=== PATIENT | female | born 1925 | race Caucasian/White ===

== ENCOUNTER 2016-09-27 15:11 | Observation (INO) | payer MEDICARE, OTHER ==
[~2016-09-27] VITALS: Ht 152.4 cm; Wt 58.6 kg
[~2016-09-27 15:11] MED LIST: ALBU8.5H4 IH; ASPI-628 PO; CYA1000I IM; DICY20TA10 PO; DOCU100C8 PO; GLMP1T PO; HYDR25TA4 PO; LEVO100T6 PO; LISI-567 PO; LOVA40TA PO; METO50TA3 PO; PARO10OR3 PO
[2016-09-27 15:18] VITALS: BP 133/82; PULSE 68; RESP 18; O2SAT 96
--- NOTE | 2016-09-27 18:46 | ED.REPORT ---
HPI-Psychiatric Illness Date of Service Sep 27, 2016 ED Provider: Sachin Red MD Radah is an 89-year-old female presents with her daughter for chief complaint of hallucinations. Daughter reports approximately 3 year history of visual hallucinations consisting of an animal in her room, people intruding in her room , as well as auditory hallucinations. These episodes are sporadic, typically occur in the evening and are generally associated with urinary tract infections. Her most recent episode began about 1 week ago with diagnosed UTI which was treated at the [facility]. On presentation, daughter reports that the patient had hallucinations of an intruder in her home and called police last night. She has also been walking around the house with a knife hoping to stab "the animal" that she sees to "prove to that are not going crazy. " In this instance hallucinations continued despite the clearing of the UTI. Radha lives with her granddaughter and great grandsons who are becoming quite concerned about her behavior. Daughter also reports that she had an episode of difficulty finding words last week. Her primary care provider as scheduled an MRI for this coming Sunday. Denies any other complaints. Nursing Notes Stated Complaint: HALLUCINATIONS, AGGITATED Chief Complaint: Psychiatric Complaint Nursing Notes Reviewed: Yes Allergies: Coded Allergies: amoxicillin (Verified Allergy, Unknown, 09/27/16) Scheduled Aspirin (Aspir 81) 81 Mg Tablet.dr 81 MG PO DAILY Cyanocobalamin (Cyanocobalamin Injection) 1,000 Mcg/1 Ml Vial 1,000 MCG IM Monthly Glimepiride (Amaryl) 1 Mg Tab 1 MG PO DAILY Hydrochlorothiazide (Hydrochlorothiazide) 25 Mg Tablet 25 MG PO DAILY Levothyroxine (Levothyroxine) 100 Mcg Tablet 100 MCG PO DAILY Lisinopril (Lisinopril) 20 Mg Tablet 20 MG PO BID Lovastatin (Lovastatin) 40 Mg Tablet 40 MG PO HS Metoprolol Tartrate (Metoprolol Tartrate) 50 Mg Tablet 50 MG PO BID Paroxetine (Paxil) 10 Mg/5 Ml Oral.susp 40 MG PO HS Scheduled PRN Albuterol HFA (Albuterol HFA) 8.5 Gm Hfa.aer.ad 1 PUFF IH Q4 PRN PRN For Shortness of Breath Dicyclomine (Dicyclomine) 20 Mg Tablet 20 MG PO BID PRN PRN For GI Cramps Docusate Sodium (Docusate Sodium) 100 Mg Capsule 100 MG PO DAILY PRN PRN For Constipation General Time Seen by MD: 18:24 Chief Complaint Bizarre behavior, Hallucinations, auditory, Hallucinations, visual Hx Obtained From: Daughter Arrived By: Walk-in Onset Occurred: 2 days ago Symptom Duration: Intermittent Progression Since Onset: Intermittent Risk-Psychiatric Illness Suicide Risk Stratification RF Statements: Risk factors reviewed Past Medical History Past Medical History Notes: PCP: [facility] Frederick Past Medical History Vitamin B12 deficiency Takes aspirin Zenker's diverticulum Reports: Asthma, Cancer, Diabetes mellitus, Hypertension Past Surgical History Lumpectomy Smoking History Never Smoker Social History Alcohol Use: Denies alcohol use Drug Use: Denies drug use Review of Systems General: Denies fever, chills, malaise. HEENT: Denies congestion, headache, sore throat. Respiratory: Denies dyspnea, cough, shortness of breath, wheezing. Cardiovascular: Denies chest pain, palpitations. Gastrointestinal: Denies vomiting, diarrhea, abdominal pain. Genitourinary: Denies frequency, urgency, dysuria, hematuria. Otherwise as noted in HPI. Complete sys rev & neg: except as marked. Physical Exam General: Well appearing, well developed, well nourished, no acute distress. Head: Atraumatic, normocephalic. No mastoid tenderness. Eyes: No scleral icterus or injection. No discharge. PERRL. Vision grossly intact. Ears: Pinna and tragus nontender with manipulation. External auditory canal patent, atraumatic and without discharge. Tympanic membrane gibson, shiny and translucent without fluid, bulging, retraction or perforation. Hearing impaired. Nose: Symmetrical, nares patent without discharge. No frontal or maxillary sinus tenderness. Mouth/pharynx: Edentulous maxillary, poor dentition in mandible, mucus membranes tacky. Tonsils 2+ and symmetrical, uvula midline. Pharynx noninjected , no cobblestoning or discharge. Voice clear. Neck: No tenderness or lymphadenopathy. Trachea midline. Respiratory: Regular rate and rhythm. Breath sounds present, clear to auscultation and equal bilaterally. Cardiovascular: Regular rate and rhythm, without murmur, gallop or rub. No pedal edema. Gastrointestinal: Abdomen flat and non-tender without guarding or rebound. Bowel sounds normoactive. Skin: Warm and dry. Neurological: Grossly nonfocal. No pronator drift. Cranial nerves: Vision grossly intact, PERRL, EOMI. Facial motion symmetrical, sensation to light touch over forehead, maxilla and mandible present and equal B /L. Voice clear and fluent, no drooling/pooling of saliva, uvula rises midline. Psychological: Alert and oriented x3. Count backwards from 10. Recalls anecdotes from her younger life. Can repeat 3 memory items immediately after learning them and several minutes later remembers 2 of them. Initial Vital Signs Vital Signs (First) Date Time Temp Pulse Resp B/P Pulse Ox O2 Delivery O2 Flow Rate FiO2 09/27/16 15:18 36.2 68 18 133/82 96 Room Air Initial VS: Reviewed, Vital signs normal Interpretation & Diagnostics Lab Results Interpretation Result Diagram: 09/27/16195009/27/161950 Test 09/27/16 18:39 09/27/16 19:51 09/27/16 22:30 Urine Color Yellow (YELLOW) Urine Appearance Clear (CLEAR,HAZY) Urine pH 6.0 (5.0-8.0) Urine Specific [place] 1.025 (1.003-1.035) Urine Protein Negativemg/dL (NEG,TRACE) Urine Glucose (UA) Negativemg/dL (NEGATIVE) Urine Ketones Negativemg/dL (NEGATIVE) Urine Occult Blood Negative (NEGATIVE) Urine Nitrite Negative (NEGATIVE) Urine Bilirubin Negative (NEGATIVE) Urine Urobilinogen Normalmg/dL (NORMAL) Urine Leukocyte Esterase Negative (NEGATIVE) Urine RBC 0-2/hpf (0-2) Urine WBC 0-5/hpf (0-5) Urine Epithelial Cells Occasional/hpf (NONE-MOD) Urine Crystals None seen (NONE SEEN) Urine Bacteria None/hpf (NONE-FEW) Urine Hyaline Casts None/lpf (NONE) Urine Granular Casts None seen (NONE SEEN) Urine Waxy Casts None seen (NONE SEEN) Urine Red Blood Cell Casts None seen (NONE SEEN) Urine White Blood Cell Casts None seen (NONE SEEN) Urine Mucus None seen (None Seen) Urine Trichomonas None seen (NONE SEEN) Urine Yeast None (NONE SEEN) Urinalysis Comment None Urine Culture Reflexed Not indicated White Blood Count 5.7th/mm3 (3.8-10.1) Red Blood Count 3.89mil/mm3 (3.90-5.20) Hemoglobin 11.9g/dL (12.0-15.6) Hematocrit 37.0% (35.0-46.0) Mean Corpuscular Volume 95.1fL (81-100) Mean Corpuscular Hemoglobin 30.6pg (27.0-35.0) Mean Corpuscular Hemoglobin Concent 32.2% (32.0-37.0) Red Cell Distribution Width 13.6% (12.3-15.4) Platelet Count 194bil/L (150-400) Neutrophils (%) (Auto) 60.8% (40-74) Lymphocytes (%) (Auto) 20.0% (14-46) Monocytes (%) (Auto) 15.3% (4-12) Eosinophils (%) (Auto) 2.8% (0-5) Basophils (%) (Auto) 0.9% (0-3) Prothrombin Time 10.0sec (8.1-12.5) Prothromb Time International Ratio 0.94ratio Activated Partial Thromboplast Time 26.8sec (22.8-33.0) Sodium Level 140mEq/L (134-144) Potassium Level 4.4mEq/L (3.5-5.2) Chloride Level 101mEq/L (97-108) Carbon Dioxide Level 26mmol/L (18-29) Blood Urea Nitrogen 27mg/dL (8-27) Creatinine 1.50mg/dL (0.57-1.00) Estimat Glomerular Filtration Rate 47mL/min (>59) Glucose Level 77mg/dL (60-99) Lactic Acid Level 1.1mmol/L (0.4-2.0) Calcium Level 9.3mg/dL (8.5-10.1) Total Bilirubin 0.3mg/dL (0.0-1.2) Aspartate Amino Transf (AST/SGOT) 21U/L (0-50) Alanine Aminotransferase (ALT/SGPT) 17U/L (0-32) Alkaline Phosphatase 71U/L (25-165) Total Protein 7.5g/dL (6.4-8.4) Albumin 4.1g/dL (3.4-5.0) Thyroid Stimulating Hormone (TSH) 0.468uIU/mL (0.450-4.500) CSF Appearance Clear (CLEAR) CSF Color Colorless (COLORLESS) CSF WBC 0/mm3 (0-5) CSF RBC 3/mm3 CSF Mononuclear WBCs % CSF Polynuclear WBCs % CSF Other Cells CSF Glucose 60mg/dL (45-90) CSF Total Protein 52mg/dL (15-45) Lab Results Interpretation: CBC normal CMP mild creatinine elevation Glucose normal Lactic acid negative Blood cultures pending UA Negative CSF negative leukocytosis, negative pleocytosis, negative Gram stain, marginally elevated protein of uncertain significance PCR pending, but given the negative leukocytosis suspicion for me is low X-Ray Chest Interpretation Chest Xray Interpretation: PROCEDURE: X-RAY CHEST ONE VIEW, PORTABLE ([id number]) INDICATIONS: altered LOC/confusion ?delerium IMPRESSION: No acute cardiopulmonary disease process. Interpretation / Wet Read by: Interpret - Radiologist, [facility] CT Head Interpretation PROCEDURE: CT BRAIN WITHOUT CONTRAST ([id number]) INDICATIONS: altered LOC IMPRESSION: No acute intracranial disease process. Interpretation / Wet Read by: Interpret - Radiologist Procedures Lumbar Puncture Text / Dict Note: 4cc of clear, colorless CSF obtained. Time: 22:25 Procedure Performed by: ED physician Consent / Setup / Site Prep: Informed consent provided, Consent from patient , Time-out performed, Hand hygiene observed, Stand sterile technique, Sterile drapes applied, Patient sitting up Skin Preparation Agent: Betadine Local Anesthesia: Bupivacaine 0.5% LP Needle Gauge: 22g Inserted Needle at: L4 L5 Post-Procedure / Complications: No complications, Tolerated procedure well, Patient stable Re-Eval/Medical Decision Source of Hx: Old records Re-Evaluation/Progress #1: Time of Eval: 19:30 Re-Evaluation/Progress Note: Investigated labs not drawn. Lab has been without district manager major accounts sales for an hour. Labs are now being drawn. Re-Evaluation/Progress #2: Time of Eval: 23:51 Re-Evaluation/Progress Note: Lab called. Gram stain negative on CSF. Consultation : Referral / Consult Name: Augustin Delacruz MD Consulted With: Hospitalist Call Returned at: 23:02 Corporate Specialist: Agrees with eval, Agrees with plan, Accepts admit Counseled Regarding: Diagnosis, Lab results, Need for admission Discharge & Departure Impression: Primary Impression: Hallucinations Additional Impressions: Altered mental status Altered mental status type: unspecified Qualified Code: R41.82 - Altered mental status, unspecified Delirium Disposition: ADMITTED TO HOSPITAL Discharge Condition All VS Reviewed: Yes Condition: Stable Referrals: [facility] (PCP) Debbie Attestation Portions of this note were transcribed by Santos Ding. I, Dr. Red, personally performed the history, physical exam and medical decision-making; I reviewed and confirmed the accuracy of the information in the transcribed note. Signed by: Debbie Alfonso, 09/27/2016 and 23:53 Attending Statement This patient was initially seen by the mid-level provider, but I personally interviewed and examined this patient and interviewed the family. The patient is brought with a chief complaint of an acute alteration in change of mental status, with episodes of loose abrasions where she is thinking there is a animal in the apartment that is not there and is trying to roberto it down. As an acute change house attendant the past week. The family reports he has had prior hallucinations-but they have typically have been associated with clearcut infections, most commonly urinary tract infections. Did have a recent UTI, culture positive at clinic, but was treated with Bactrim, and a follow-up UA was negative. She denies any urination symptoms come she denies fevers or chills. Family is very concerned. He reports that she is had a couple episodes in recent weeks of what sounds like a potential expressive aphasia. She does not have any expressive aphasia in the department, and no focal deficits, and her an extra skills 0, does not make criteria for TPA,-order she have clearcut findings of a CVA at this time. She is actually quite well appearing in the department. She is energetic, slightly hard of hearing, but has a normal exam. Confusion which is at baseline , including trouble with date-is not the best historian is the history has to be supplemented by family. Does not she is doing quite well. Her toxic or ill , she has no clinical meningismus. I cannot obtain any clear infectious symptoms. Patient denies her being on any new medications. 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 Overall the patient's presentation is suggestive of a medical etiology-although nursing and the template used were psychiatric, there is little suggests this primary psychiatric etiology at this time. This point given the waxing and waning symptoms, but her quite significantly over the past week the concern would be delirium. Workup was pursued. CT head was negative. Blood work was normal. Chest x-ray is normal. UA was negative. Informed consent was obtained, and an LP was performed at bedside-this revealed no markers of infection. Patient scheduled for an outpatient MRI, but particularly with the episodes of expressive aphasia in recent weeks, I think observation admission for delirium, and to obtain the expedited MRI are appropriate. Patient's done while in the department. Her chief complaint of being admission if she wishes for a sleep aid she has not slept well in several days. We had a long discussion, since they have indicated that medications can cause problems in this scenario, but ultimately after lengthy discussion the patient and family have written for a 5 mg dose of Ambien x1. Additionally the patient would like medication for claustrophobia for her MRI tomorrow, and reports she does not do well with lorazepam, so I suggested a dose in the [place] when necessary. Only as the family thinks her intake as been slightly poor, she is receiving some gentle IV hydration-although she is not overtly clinically dehydrated nor are labs abnormal. She is being admitted observation status for continued management. copies to: [facility] Seth PA-C Sep 27, 2016 18:46 SANTOS DING Sep 27, 2016 19:31 Sachin Red MD Sep 28, 2016 00:42
--- NOTE | 2016-09-27 18:49 | DRSVH ---
PROCEDURE: CT BRAIN WITHOUT CONTRAST ([id number]) INDICATIONS: altered LOC TECHNIQUE: Noncontrast 4.5 mm thick angled axial sections acquired from the foramen magnum to the vertex, with c oronal reformats. COMPARISON: [facility], CT, BRAIN W/O CONTRAST, 10/27/2014, 10:39. FINDINGS: Image quality: Excellent. CSF spaces: Basal cisterns are patent. No extra-axial fluid collections. The ventricles are symmet samuel in size and shape. Brain: No intracranial bleeds or masses. There is cerebral volume loss for age, with resultant vent ricular and sulcal prominence. There are severe periventricular and deep white matter chronic small vessel ischemic changes. There is intracranial internal carotid artery atherosclerosis. Skull and face: Calvarium and visualized facial bones appear intact, without suspicious lesions. Sinuses: Visualized sinuses and mastoids are clear. IMPRESSION: No acute intracranial disease process. Dictated by: Hortensia Gomez MD, PhD on 09/27/2016 at 18:45 Approved by: Hortensia Gomez MD, PhD on 09/27/2016 at 18:47
[2016-09-27 18:57] LABS: APPEARANCE,URINE CLEAR (CLEAR,HAZY); COLOR,URINE YELLOW (YELLOW); OCCULT BLOOD,URINE NEGATIVE (NEGATIVE); UROBILINOGEN,URINE NORMAL (NORMAL)
[2016-09-27 19:00] VITALS: BP 138/72; PULSE 78; RESP 17; O2SAT 96
[2016-09-27 20:02] LABS: BASOPHILS % (AUTO) 0.9 % (0-3); EOSINOPHILS % (AUTO) 2.8 % (0-5); MONOCYTES % (AUTO) 15.3 % (4-12); Mean Corpuscular Hemoglobin 30.6 pg (27.0-35.0); Mean Corpuscular Volume 95.1 fL (81-100); NEUTROPHILS % (AUTO) 60.8 % (40-74); Platelet Count 194 bil/L (150-400)
[2016-09-27 20:21] LABS: INR 0.94 ratio
--- NOTE | 2016-09-27 20:25 | DRSVH ---
PROCEDURE: X-RAY CHEST ONE VIEW, PORTABLE ([id number]) INDICATIONS: altered LOC/confusion ?delerium TECHNIQUE: One view of the chest was acquired. COMPARISON: [facility], , CHEST 2VW, 10/20/2009, 12:19. FINDINGS: Surgical changes and devices: Surgical clips are stable. Lungs and pleura: Elevation of the right hemidiaphragm is stable. No pleural effusions or pneumothor ax. Lungs are clear. Mediastinum: Mediastinal contours appear normal. Heart size is normal. Bones and chest wall: No suspicious bony lesions. Overlying soft tissues appear unremarkable. IMPRESSION: No acute cardiopulmonary disease process. Dictated by: Hortensia Gomez MD, PhD on 09/27/2016 at 20:22 Approved by: Hortensia Gomez MD, PhD on 09/27/2016 at 20:23
[2016-09-27] MEDS ORDERED: Bupivacaine 0.5% 50 mL Inj SUBQ ONE (21:20)
[2016-09-27] MEDS ORDERED: Bupivacaine-MPF 0.5% 30 mL Inj ONE (21:30)
[2016-09-27] MEDS ORDERED: Bupivacaine 0.5%/EPI 50 mL Inj ONE (21:33)
[2016-09-27 22:30] VITALS: BP 118/80; PULSE 88; RESP 16; O2SAT 98
[2016-09-27] MEDS: 0.9% Sodium Chloride 1,000 ML IV SCH (22:31)
[2016-09-27] MEDS ORDERED: Ondansetron 2 mg/mL 2 mL Inj IV PRN (23:15)
[2016-09-27] MEDS ORDERED: Polyethylene Glycol (PEG) 17 Gm Powder PO PRN (23:15)
[2016-09-27] MEDS ORDERED: Alum-Mag Hydrox-Simeth 30 mL Suspension PO PRN (23:15)
[2016-09-27 23:18] LABS: APPEARANCE,CSF CLEAR (CLEAR); COLOR,CSF COLORLESS (COLORLESS); WHITE BLOOD CELL,CSF 0 /mm3 (0-5)
[2016-09-28] VITALS (7 sets, daily range): BP systolic 122–186; BP diastolic 64–84; PULSE 63–84; RESP 14–18; O2SAT 93–98
[2016-09-28] MEDS: 0.9% Sodium Chloride 1,000 ML IV SCH ×2 (00:10→17:45)
--- NOTE | 2016-09-28 00:37 | PCM.HPMED ---
Subjective Date of Service Sep 27, 2016 Primary Provider: Admitting Physician: Primary Care Physician: [facility] Attending Physician: Admit Status: From the Emergency Department Chief Complaint: Bizarre behavior, Hallucinations, auditory, Hallucinations, visual History of Present Illness: Radha is an pleasant 89-year-old female with history significant for DM2, HTN, who presents to ED with her daughter for chief complaint of hallucinations. Per ED reports, daughter reports approximately 3 year history of visual hallucinations consisting of an animal in her room, people intruding in her room , as well as auditory hallucinations. These episodes are sporadic, typically occur in the evening and are generally associated with urinary tract infections. Her most recent episode began about 1 week ago with diagnosed UTI which was [facility]. On presentation, daughter reports that the patient had hallucinations of an intruder in her home and called police last night. She has also been walking around the house with a knife hoping to stab "the animal" that she sees to "prove to that are not going crazy." In this instance hallucinations continued despite the clearing of the UTI. Radha lives with her granddaughter and great grandsons who are becoming quite concerned about her behavior. Daughter also reports that she had an episode of difficulty finding words last week. Her primary care provider as scheduled an MRI for this coming Sunday. Patient recalls of seeing the animal and remembers trying to stab it with a kitchen knife. Also recalls of the incident last night of apparently seeing a human figure and having a conversation with the police. In the ED, vitals were all within normal range, labs significant for creatinine of 1.5. Lactic acid, TSH, UA, CSF on LP, CXR, CT head all negative. Patient admitted for possible stroke. Review of Systems: All ROS reviewed and negative otherwise noted in HPI. Allergies Coded Allergies: amoxicillin (Verified Allergy, Unknown, 09/27/16) Home Medications Scheduled Aspirin (Aspir 81) 81 Mg Tablet.dr 81 MG PO DAILY Cyanocobalamin (Cyanocobalamin Injection) 1,000 Mcg/1 Ml Vial 1,000 MCG IM Monthly Glimepiride (Amaryl) 1 Mg Tab 1 MG PO DAILY Hydrochlorothiazide (Hydrochlorothiazide) 25 Mg Tablet 25 MG PO DAILY Levothyroxine (Levothyroxine) 100 Mcg Tablet 100 MCG PO DAILY Lisinopril (Lisinopril) 20 Mg Tablet 20 MG PO BID Lovastatin (Lovastatin) 40 Mg Tablet 40 MG PO HS Metoprolol Tartrate (Metoprolol Tartrate) 50 Mg Tablet 50 MG PO BID Paroxetine (Paxil) 10 Mg/5 Ml Oral.susp 40 MG PO HS Scheduled PRN Albuterol HFA (Albuterol HFA) 8.5 Gm Hfa.aer.ad 1 PUFF IH Q4 PRN PRN For Shortness of Breath Dicyclomine (Dicyclomine) 20 Mg Tablet 20 MG PO BID PRN PRN For GI Cramps Docusate Sodium (Docusate Sodium) 100 Mg Capsule 100 MG PO DAILY PRN PRN For Constipation PMH Asthma, Cancer Diabetes mellitus Hypertension Vitamin B12 deficiency Takes aspirin Zenker's diverticulum Surgical History Lumpectomy Family History Father with heart issues Social History Hx Alcohol Use: No Hx Substance Use: No Hx Tobacco Use: No Smoking Status: Never Smoker Living Arrangement: with Family Exam Vital Signs Vital Sign - Last Date Time Temp Pulse Resp B/P Pulse Ox O2 Delivery O2 Flow Rate FiO2 09/27/16 19:00 36.7 78 17 138/72 96 Room Air Exam GEN: Alert and oriented x3, well developed, well nourished, in no acute distress HEENT: NC/AT, non-tender, pupils sluggish, EOMI, sclera anicteric, no sinus tenderness, poor dentition, moist mucous membranes Neck: supple with full ROM, trachea midline, no lymphadenopathy CV: RRR, no murmurs, rubs, or gallops, <3 sec cap refill with normal peripheral pulses Lungs: CTAB, normal breath sounds Abd: soft, non-distended, non-tender, no suprapubic pain, normal active bowel tones Skin: Dry, warm and intact, multiple ecchymosis on bilateral arms Neuro: CN II-XII grossly intact, no focal deficits, strength and sensation intact throughout Psych: normal mood and affect, normal speech Lab and Diagnostics Result Diagram: 09/27/16195009/27/161950 X-Rays, CTs and MRIs Date of Service: 09/27/161823 PROCEDURE: X-RAY CHEST ONE VIEW, PORTABLE ([id number]) INDICATIONS: altered LOC/confusion ?delerium IMPRESSION: No acute cardiopulmonary disease process. Dictated by: Hortensia Gomez MD, PhD on 09/27/2016 at 20:22 Date of Service: 09/27/16 1824 PROCEDURE: CT BRAIN WITHOUT CONTRAST ([id number]) INDICATIONS: altered LOC IMPRESSION: No acute intracranial disease process. Dictated by: Hortensia Gomez MD, PhD on 09/27/2016 at 18:45 Assessment & Plan Patient is an 89-year-old female with history significant for DM2, HTN, who presents with her daughter for chief complaint of hallucinations. Intermittently ongoing for past 3 years, usually related to UTI. Patient treated for UTI one week ago, but hallucinations have not resolved. Patient admitted for stroke work up. Acute Encephalopathy, present on admission. Stable. - Labs, UA, CXR, CT head, LP all negative - BCx pending - MRI in am Possible TIA/CVA, present on admission. Active. - Not a TPA candidate due to symptoms ongoing for past 3 years, worsening over past week - stroke protocol ordered with swallow/OT/PT pending - consider Echocardiogram if indicated - MRI in am Possible acute kidney injury, present on admission. Active. - No baseline to compare - Lisinopril and HTCZ held - IVF - avoid nephrotoxic medications Chronic issues: Diabetes mellitus, type 2 - glipizide held - low correctional insulin protocol Hypertension - Lisinopril, HCTZ, held - continue Metoprolol Hyperlipidemia - continue statin Hypothyroidism - continue levothyroxine Vit B12 deficiency - continue outpatient monthly injections Dental work next week - patient off of aspirin for procedure at this time DVT: Heparin SubQ GI: not indicated CODE: FULL Dispo: Anticipate discharge tomorrow if studies are negative for acute process. Pain Evaluation: Adequate Pain Control GI Prophylaxis: Not indicated VTE Prophylaxis: Sub-Q Heparin (Unfractionated) Resuscitation Status: CPR: Attempt Resuscitation Attending Statement The patient was seen and examined together with Dr. Fuller on 09/27 and I agree with the history, exam and plan as outlined in the note above. Trang Fuller DO Sep 27, 2016 23:18 Augustin Delacruz MD Sep 28, 2016 02:02
[2016-09-28] MEDS ORDERED: Albuterol 2.5 mg/3 mL Inhalation Solution NEB PRN (00:51)
[2016-09-28] MEDS ORDERED: Glucose 40% Oral Gel 15 Gm Tube PO PRN (01:10)
[2016-09-28] MEDS: Heparin 5,000 Unit/mL Inj SUBQ SCH ×3 (02:30→17:44)
--- NOTE | 2016-09-28 05:09 | NUR ---
admit pt admitted from ED to room 1010 at 0040. she is alert and oriented but forgetful. she was able to walk from the gurney to the bed without difficulty. pt is hard of hearing and does not have hearing aids. was unable to complete all of admit because pt could not hear my questions well enough to understand and answers appropriately. admit was done by medical records. also pt was given an ambien in the ED and fell asleep before med rec could be completed. will ask pt about medications when she wakes up. also pt passed the nursing swallow eval without any problems. she was asking for a sandwich MD was called and asked if it was OK to advance pt before she was evaluated by . MD barone in order to advance to carb consistent as tolerated. pt ate her sandwich with no signs of coughing or difficulty swallowing. will continue to monitor.
--- NOTE | 2016-09-28 09:04 | NUR ---
Evaluation completed. Please go to "Notes" then click on "Assessments and Notes" (bottom left corner of screen). Then select appropriate discipline tab on top of screen.
[2016-09-28] MEDS ORDERED: PARO10OR3 PO (09:51)
[2016-09-28] MEDS: Insulin LISPRO 300 Unit/3 mL Inj SUBQ SCH ×4 (10:03→22:00)
[2016-09-28] MEDS ORDERED: PROP10DR10 OP (11:08)
--- NOTE | 2016-09-28 13:42 | DRSVH ---
PROCEDURE: MRI BRAIN WITHOUT CONTRAST ([id number]) INDICATIONS: hallucinations TECHNIQUE: Non-contrast axial T1 spin echo, axial T2 fast spin echo, sagittal and axial FLAIR, coronal T2 fast s pin echo, axial gradient echo, axial diffusion and ADC through the brain. COMPARISON: [facility], CT, CT BRAIN WO CON, 09/27/2016, 18:36. FINDINGS: Image quality: Partially degraded by motion artifact. CSF spaces: Ventricles appear symmetric in size and shape. Basal cisterns are patent. No extra-axi al fluid collections. Brain: No intracranial bleeds or mass effects. There is cerebral volume loss for age. There is a m oderate degree of patchy high FLAIR signal within the periventricular and subcortical white matter. B rainstem appears normal. Diffusion-weighted images show no acute ischemic insults. No chronic ische ambrosio insults. Normal intravascular flow voids are present. Skull and face: Calvarial bone marrow is normal in signal. Orbits are normal. Sinuses: Sinuses and mastoids are clear. IMPRESSION: 1. Volume loss. 2. Moderate degree of nonspecific white matter disease. Differential considerations include small ves mirza ischemic disease, diabetes mellitus, vasculitides, and demyelinating disorders, such as multiple sclerosis. 3. No acute intracranial abnormality. No recent infarct. Dictated by: Sagar Kearns M.D. on 09/28/2016 at 13:37 Approved by: Sagar Kearns M.D. on 09/28/2016 at 13:40
--- NOTE | 2016-09-28 16:34 | NUR ---
Case Management: Attempted to provide MASON--pt appears to be sleeping soundly. Will try later. Jayna Larsen RN Addendum: 09/28/16 at 1809 by JAYNA LARSEN Pt continues to sleep soundly. Unable to deliver MASON. Jayna Larsen RN
--- NOTE | 2016-09-28 18:57 | NUR ---
Activity Pt had no hallucinations during shift and was A&O x 3, but forgetful. Had one episode of being out in hallway looking for bathroom, but was easily reoriented. Pt had Ativan IM prior to MRI for claustrophobia and then hours later daughter in law reported that she can have difficulties at night after taking. aware and passed on to shift supervisor film processing RN. No other doses of Ativan ordered. Pt was up independently in room, until this afternoon when she was sleepy. Pt's BP's have been elevated over course of shift. MD aware and home BP meds were held for possible BRANDT. MD had no other recommendations other than to watch BP and report. Pt had no c/o pain during shift. Medications given in applesauce. Pt has no IV access and MD is aware.
[2016-09-29 00:52] VITALS: BP 180/80; PULSE 65; RESP 18; O2SAT 93
[2016-09-29] MEDS: Heparin 5,000 Unit/mL Inj SUBQ SCH ×2 (00:58→09:45)
--- NOTE | 2016-09-29 04:21 | NUR ---
Activity Patient did not exhibit s/s of hallucination throughout shift. Patient answered questions appropriately. Patient able to sleep comfortably. Denies generalized pain, chest pain, SOB, and any abdominal discomfort at this time. Bed in locked position, call light within reach, intentional rounding.
[2016-09-29] MEDS: 0.9% Sodium Chloride 1,000 ML IV SCH (04:25)
[2016-09-29 04:54] VITALS: PULSE 56
[2016-09-29 05:49] VITALS: BP 163/68; PULSE 61; RESP 16; O2SAT 95
[2016-09-29 06:11] LABS: Mean Corpuscular Hemoglobin 30.6 pg (27.0-35.0); Mean Corpuscular Volume 95.6 fL (81-100)
[2016-09-29 06:14] LABS: Vitamin B12 287 pg/mL (211-946)
[2016-09-29] MEDS ORDERED: ASPI-973 PO (06:51)
[2016-09-29 07:54] VITALS: PULSE 58
[2016-09-29] MEDS: Insulin LISPRO 300 Unit/3 mL Inj SUBQ SCH (07:55)
--- NOTE | 2016-09-29 07:56 | PCM.DIMED ---
Discharge Instructions Date of Service Sep 29, 2016 Dates of Hospitalization Sep 28, 2016 at 00:19 Discharge Diagnosis Discharge Diagnosis Altered mental status, resolved Diet Heart Healthy, Diabetic Activity Other (as tolerated) Patient Instructions Follow-up with PCP in: 1 week Karina Mock MD Sep 29, 2016 07:56
[2016-09-29] MEDS ORDERED: AMLO2.5T PO (07:57)
--- NOTE | 2016-09-29 08:05 | PCM.DC.MED ---
Discharge Summary Date of Service Sep 29, 2016 Dates of Hospitalization Date of Hospital Admission Sep 28, 2016 at 00:19 Date of Discharge: Sep 29, 2016 Providers: Admitting Physician: Augustin Delacruz MD Primary Care Physician: Don Mora Attending Physician: Augustin Delacruz MD Diagnosis at Time of Discharge Diagnosis at Time of Discharge Altered mental status, resolved Procedures XRay, CTs & MRIs Date of Service: 09/27/161823 PROCEDURE: X-RAY CHEST ONE VIEW, PORTABLE ([id number]) INDICATIONS: altered LOC/confusion ?delerium IMPRESSION: No acute cardiopulmonary disease process. Dictated by: Hortensia Gomez MD, PhD on 09/27/2016 at 20:22 Date of Service: 09/27/161823 PROCEDURE: CT BRAIN WITHOUT CONTRAST ([id number]) INDICATIONS: altered LOC IMPRESSION: No acute intracranial disease process. Dictated by: Hortensia Gomez MD, PhD on 09/27/2016 at 18:45 PROCEDURE: MRI BRAIN WITHOUT CONTRAST ([id number]) INDICATIONS: hallucinations TECHNIQUE: Non-contrast axial T1 spin echo, axial T2 fast spin echo, sagittal and axial FLAIR, coronal T2 fast spin echo, axial gradient echo, axial diffusion and ADC through the brain. COMPARISON: [facility], CT, CT BRAIN WO CON, 09/27/2016, 18:36. FINDINGS: Image quality: Partially degraded by motion artifact. CSF spaces: Ventricles appear symmetric in size and shape. Basal cisterns are patent. No extra-axial fluid collections. Brain: No intracranial bleeds or mass effects. There is cerebral volume loss for age. There is a moderate degree of patchy high FLAIR signal within the periventricular and subcortical white matter. Brainstem appears normal. Diffusion-weighted images show no acute ischemic insults. No chronic ischemic insults. Normal intravascular flow voids are present. Skull and face: Calvarial bone marrow is normal in signal. Orbits are normal. Sinuses: Sinuses and mastoids are clear. IMPRESSION: 1. Volume loss. 2. Moderate degree of nonspecific white matter disease. Differential considerations include small vessel ischemic disease, diabetes mellitus, vasculitides, and demyelinating disorders, such as multiple sclerosis. 3. No acute intracranial abnormality. No recent infarct. Brief History Radha is an pleasant 89-year-old female with history significant for DM2, HTN, who presents to ED with her daughter for chief complaint of hallucinations. Per ED reports, daughter reports approximately 3 year history of visual hallucinations consisting of an animal in her room, people intruding in her room , as well as auditory hallucinations. These episodes are sporadic, typically occur in the evening and are generally associated with urinary tract infections. Her most recent episode began about 1 week ago with diagnosed UTI which was treated at the [facility]. On presentation, daughter reports that the patient had hallucinations of an intruder in her home and called police last night. She has also been walking around the house with a knife hoping to stab "the animal" that she sees to "prove to that are not going crazy." In this instance hallucinations continued despite the clearing of the UTI. Radha lives with her granddaughter and great grandsons who are becoming quite concerned about her behavior. Daughter also reports that she had an episode of difficulty finding words last week. Her primary care provider as scheduled an MRI for this coming Sunday. Patient recalls of seeing the animal and remembers trying to stab it with a kitchen knife. Also recalls of the incident last night of apparently seeing a human figure and having a conversation with the police. In the ED, vitals were all within normal range, labs significant for creatinine of 1.5. Lactic acid, TSH, UA, CSF on LP, CXR, CT head all negative. Patient admitted for possible stroke. Hospital Course Patient is an 89-year-old female with history significant for DM2, HTN, who presents with her daughter for chief complaint of hallucinations. Intermittently ongoing for past 3 years, usually related to UTI. Patient treated for UTI one week ago, but hallucinations have not resolved. Patient admitted for stroke work up. Acute Encephalopathy, present on admission. Stable. - Labs, UA, CXR, CT head, LP all negative - BCx pending - MRI in am which did not show any significant acute abnormalities. -Patient had no hallucinations while here and will be discharged to home with family member Possible TIA/CVA, present on admission. Active. - Not a TPA candidate due to symptoms ongoing for past 3 years, worsening over past week - stroke protocol ordered with swallow/OT/PT pending - consider Echocardiogram if indicated - MRI in am which did not show any acute abnormalities Possible acute kidney injury, present on admission. Active. - No baseline to compare - Lisinopril and HTCZ held - IVF - avoid nephrotoxic medications -We will continue off of lisinopril and hydrochlorothiazide and initiate amlodipine 2.5 mg by mouth daily which should be followed up with her primary care provider Chronic issues: Diabetes mellitus, type 2 - glipizide held - low correctional insulin protocol Hypertension - Lisinopril, HCTZ, held - continue Metoprolol Hyperlipidemia - continue statin Hypothyroidism - continue levothyroxine Vit B12 deficiency - continue outpatient monthly injections Dental work next week - patient off of aspirin for procedure at this time DVT: Heparin SubQ GI: not indicated CODE: FULL Dispo: Anticipate discharge tomorrow if studies are negative for acute process. Exam Vital Signs (Last) Date Time Temp Pulse Resp B/P Pulse Ox O2 Delivery O2 Flow Rate FiO2 09/29/16 05:49 36.8 61 16 163/68 95 Room Air Exam Constitutional: Elderly woman in no acute distress Head: Normocephalic atraumatic Chest: Clear to auscultation Cor: Regular rate and rhythm S1-S2 Abdomen: Soft nontender bowel sounds present Extremities: No pedal edema noted Neuro: Alert and oriented 3, moves all extremities equally Laboratory Tests 72 Hours Test 09/27/16 18:39 09/27/16 19:51 09/27/16 22:30 09/28/16 16:55 Urine Color Yellow (YELLOW) Urine Appearance Clear (CLEAR,HAZY) Urine pH 6.0 (5.0-8.0) Urine Specific [place] 1.025 (1.003-1.035) Urine Protein Negativemg/dL (NEG,TRACE) Urine Glucose (UA) Negativemg/dL (NEGATIVE) Urine Ketones Negativemg/dL (NEGATIVE) Urine Occult Blood Negative (NEGATIVE) Urine Nitrite Negative (NEGATIVE) Urine Bilirubin Negative (NEGATIVE) Urine Urobilinogen Normalmg/dL (NORMAL) Urine Leukocyte Esterase Negative (NEGATIVE) Urine RBC 0-2/hpf (0-2) Urine WBC 0-5/hpf (0-5) Urine Epithelial Cells Occasional/hpf (NONE-MOD) Urine Crystals None seen (NONE SEEN) Urine Bacteria None/hpf (NONE-FEW) Urine Hyaline Casts None/lpf (NONE) Urine Granular Casts None seen (NONE SEEN) Urine Waxy Casts None seen (NONE SEEN) Urine Red Blood Cell Casts None seen (NONE SEEN) Urine White Blood Cell Casts None seen (NONE SEEN) Urine Mucus None seen (None Seen) Urine Trichomonas None seen (NONE SEEN) Urine Yeast None (NONE SEEN) Urinalysis Comment None Urine Culture Reflexed Not indicated White Blood Count 5.7th/mm3 (3.8-10.1) Red Blood Count 3.89mil/mm3 (3.90-5.20) Hemoglobin 11.9g/dL (12.0-15.6) Hematocrit 37.0% (35.0-46.0) Mean Corpuscular Volume 95.1fL (81-100) Mean Corpuscular Hemoglobin 30.6pg (27.0-35.0) Mean Corpuscular Hemoglobin Concent 32.2% (32.0-37.0) Red Cell Distribution Width 13.6% (12.3-15.4) Platelet Count 194bil/L (150-400) Neutrophils (%) (Auto) 60.8% (40-74) Lymphocytes (%) (Auto) 20.0% (14-46) Monocytes (%) (Auto) 15.3% (4-12) Eosinophils (%) (Auto) 2.8% (0-5) Basophils (%) (Auto) 0.9% (0-3) Prothrombin Time 10.0sec (8.1-12.5) Prothromb Time International Ratio 0.94ratio Activated Partial Thromboplast Time 26.8sec (22.8-33.0) Sodium Level 140mEq/L (134-144) Potassium Level 4.4mEq/L (3.5-5.2) Chloride Level 101mEq/L (97-108) Carbon Dioxide Level 26mmol/L (18-29) Blood Urea Nitrogen 27mg/dL (8-27) Creatinine 1.50mg/dL (0.57-1.00) Estimat Glomerular Filtration Rate 47mL/min (>59) Glucose Level 77mg/dL (60-99) Lactic Acid Level 1.1mmol/L (0.4-2.0) Calcium Level 9.3mg/dL (8.5-10.1) Total Bilirubin 0.3mg/dL (0.0-1.2) Aspartate Amino Transf (AST/SGOT) 21U/L (0-50) Alanine Aminotransferase (ALT/SGPT) 17U/L (0-32) Alkaline Phosphatase 71U/L (25-165) Total Protein 7.5g/dL (6.4-8.4) Albumin 4.1g/dL (3.4-5.0) Thyroid Stimulating Hormone (TSH) 0.468uIU/mL (0.450-4.500) CSF Appearance Clear (CLEAR) CSF Color Colorless (COLORLESS) CSF WBC 0/mm3 (0-5) CSF RBC 3/mm3 CSF Mononuclear WBCs % CSF Polynuclear WBCs % CSF Other Cells CSF Glucose 60mg/dL (45-90) CSF Total Protein 52mg/dL (15-45) C-Reactive Protein 0.4mg/dL (0.0-0.5) Vitamin B12 Level 287pg/mL (211-946) Folate 13.4ng/mL (>3.0) Test 09/29/16 05:40 White Blood Count 5.6th/mm3 (3.8-10.1) Red Blood Count 3.63mil/mm3 (3.90-5.20) Hemoglobin 11.1g/dL (12.0-15.6) Hematocrit 34.7% (35.0-46.0) Mean Corpuscular Volume 95.6fL (81-100) Mean Corpuscular Hemoglobin 30.6pg (27.0-35.0) Mean Corpuscular Hemoglobin Concent 32.0% (32.0-37.0) Red Cell Distribution Width 13.3% (12.3-15.4) Platelet Count 190bil/L (150-400) Erythrocyte Sedimentation Rate 32mm/hr (0-40) Sodium Level 141mEq/L (134-144) Potassium Level 4.6mEq/L (3.5-5.2) Chloride Level 104mEq/L (97-108) Carbon Dioxide Level 23mmol/L (18-29) Blood Urea Nitrogen 29mg/dL (8-27) Creatinine 1.27mg/dL (0.57-1.00) Estimat Glomerular Filtration Rate 57mL/min (>59) Glucose Level 108mg/dL (60-99) Calcium Level 8.8mg/dL (8.5-10.1) Test 09/27/16 18:39 09/27/16 19:51 09/27/16 22:30 09/28/16 16:55 Urine Color Yellow (YELLOW) Urine Appearance Clear (CLEAR,HAZY) Urine pH 6.0 (5.0-8.0) Urine Specific [place] 1.025 (1.003-1.035) Urine Protein Negativemg/dL (NEG,TRACE) Urine Glucose (UA) Negativemg/dL (NEGATIVE) Urine Ketones Negativemg/dL (NEGATIVE) Urine Occult Blood Negative (NEGATIVE) Urine Nitrite Negative (NEGATIVE) Urine Bilirubin Negative (NEGATIVE) Urine Urobilinogen Normalmg/dL (NORMAL) Urine Leukocyte Esterase Negative (NEGATIVE) Urine RBC 0-2/hpf (0-2) Urine WBC 0-5/hpf (0-5) Urine Epithelial Cells Occasional/hpf (NONE-MOD) Urine Crystals None seen (NONE SEEN) Urine Bacteria None/hpf (NONE-FEW) Urine Hyaline Casts None/lpf (NONE) Urine Granular Casts None seen (NONE SEEN) Urine Waxy Casts None seen (NONE SEEN) Urine Red Blood Cell Casts None seen (NONE SEEN) Urine White Blood Cell Casts None seen (NONE SEEN) Urine Mucus None seen (None Seen) Urine Trichomonas None seen (NONE SEEN) Urine Yeast None (NONE SEEN) Urinalysis Comment None Urine Culture Reflexed Not indicated Neutrophils (%) (Auto) 60.8% (40-74) Lymphocytes (%) (Auto) 20.0% (14-46) Monocytes (%) (Auto) 15.3% (4-12) Eosinophils (%) (Auto) 2.8% (0-5) Basophils (%) (Auto) 0.9% (0-3) Prothrombin Time 10.0sec (8.1-12.5) Prothromb Time International Ratio 0.94ratio Activated Partial Thromboplast Time 26.8sec (22.8-33.0) Lactic Acid Level 1.1mmol/L (0.4-2.0) Total Bilirubin 0.3mg/dL (0.0-1.2) Aspartate Amino Transf (AST/SGOT) 21U/L (0-50) Alanine Aminotransferase (ALT/SGPT) 17U/L (0-32) Alkaline Phosphatase 71U/L (25-165) Total Protein 7.5g/dL (6.4-8.4) Albumin 4.1g/dL (3.4-5.0) Thyroid Stimulating Hormone (TSH) 0.468uIU/mL (0.450-4.500) CSF Appearance Clear (CLEAR) CSF Color Colorless (COLORLESS) CSF WBC 0/mm3 (0-5) CSF RBC 3/mm3 CSF Mononuclear WBCs % CSF Polynuclear WBCs % CSF Other Cells CSF Glucose 60mg/dL (45-90) CSF Total Protein 52mg/dL (15-45) C-Reactive Protein 0.4mg/dL (0.0-0.5) Vitamin B12 Level 287pg/mL (211-946) Folate 13.4ng/mL (>3.0) Test 09/29/16 05:40 White Blood Count 5.6th/mm3 (3.8-10.1) Red Blood Count 3.63mil/mm3 (3.90-5.20) Hemoglobin 11.1g/dL (12.0-15.6) Hematocrit 34.7% (35.0-46.0) Mean Corpuscular Volume 95.6fL (81-100) Mean Corpuscular Hemoglobin 30.6pg (27.0-35.0) Mean Corpuscular Hemoglobin Concent 32.0% (32.0-37.0) Red Cell Distribution Width 13.3% (12.3-15.4) Platelet Count 190bil/L (150-400) Erythrocyte Sedimentation Rate 32mm/hr (0-40) Sodium Level 141mEq/L (134-144) Potassium Level 4.6mEq/L (3.5-5.2) Chloride Level 104mEq/L (97-108) Carbon Dioxide Level 23mmol/L (18-29) Blood Urea Nitrogen 29mg/dL (8-27) Creatinine 1.27mg/dL (0.57-1.00) Estimat Glomerular Filtration Rate 57mL/min (>59) Glucose Level 108mg/dL (60-99) Calcium Level 8.8mg/dL (8.5-10.1) Discharge Medications Discharge Medications Amlodipine (Amlodipine) 2.5 Mg Tablet 2.5 MG PO DAILY Prescribed by: KARINA MOCK MD Aspirin (Aspirin) 81 Mg Tablet 81 MG PO DAILY (Reported) Cyanocobalamin (Cyanocobalamin Injection) 1,000 Mcg/1 Ml Vial 1,000 MCG IM Monthly (Reported) Glimepiride (Amaryl) 1 Mg Tab 1 MG PO DAILY (Reported) Hydrochlorothiazide (Hydrochlorothiazide) 25 Mg Tablet 25 MG PO BID (Reported) Levothyroxine (Levothyroxine) 100 Mcg Tablet 100 MCG PO DAILY (Reported) Lisinopril (Lisinopril) 20 Mg Tablet 20 MG PO BID (Reported) Lovastatin (Lovastatin) 40 Mg Tablet 40 MG PO HS (Reported) Metoprolol Tartrate (Metoprolol Tartrate) 50 Mg Tablet 50 MG PO BID (Reported) Paroxetine (Paxil) 10 Mg/5 Ml Oral.susp 20 MG PO HS (Reported) As needed Propylene Glycol (Lubricant Eye Drops) 0.6 % Drops 10 ML OP TID PRN PRN dry eye (Reported) Followup Plan Discharge Diet: Heart Healthy, Diabetic Discharge Activity: Other (as tolerated) Follow-up with PCP in: 1 week Time spent 30 minutes Karina Mock MD Sep 29, 2016 08:05
[2016-09-29] MEDS ORDERED: LORA-302 PO (10:13)
[2016-09-29] MEDS ORDERED: RISP0.2517 PO (10:14)
--- NOTE | 2016-09-29 12:01 | NUR ---
Discharge Orders for discharge were received. The patient was aware of and agreeable to the plan. The patient was given information regarding her diagnosis, treatment, signs and symptoms to be aware of, follow up instructions, scripts and information regarding her new medications. The patient signified understanding of this information and she was dressed in her own clothing. Her belongings were gathered and she ambulated into a wheelchair which wheeled her to the main entrance where she ambulated into a family vehicle. At the time of discharge the patient was alert and oriented, with no compliant of pain, nausea, weakness or other difficulties.
== END 2016-09-29 11:50 | disposition home or self-care (01) ==
LOC: SED 15:11 → OSC 09-28 00:19
PROVIDERS: ADMIT Hospitalist; ATTEND Hospitalist
DX: G93.40 Encephalopathy, unspecified (principal); R41.82 Altered mental status, unspecified; R44.3 Hallucinations, unspecified; J45.909 Unspecified asthma, uncomplicated; E11.9 Type 2 diabetes mellitus without complications; I10 Essential (primary) hypertension; K22.5 Diverticulum of esophagus, acquired; E78.5 Hyperlipidemia, unspecified; E03.9 Hypothyroidism, unspecified; E53.8 Deficiency of other specified B group vitamins; Z79.82 Long term (current) use of aspirin; Z87.440 Personal history of urinary (tract) infections; Z85.9 Personal history of malignant neoplasm, unspecified; Z79.84 Long term (current) use of oral hypoglycemic drugs
CPT/HCPCS: 36415; 62270; 70450; 70551; 71010; 80048; 80053; 81000; 82607; 82746; 82945; 83605; 84155; 84443; 85025; 85027; 85610; 85651; 85730; 86140; 86592; 87040; 87070; 87205; 89051; 92610; 96372; 97161; 99285; G0378; G8978; G8979; G8980; J1644; J1815; J2060; J7030